=== PATIENT | female | born 1960 | race Caucasian/White ===

== ENCOUNTER 2022-03-12 15:18 | Emergency (ER) | payer MEDICARE, MEDICAID ==
[~2022-03-12] VITALS: Ht 172.7 cm; Wt 52.4 kg
[2022-03-12 15:24] VITALS: BP 139/90
== END 2022-03-12 18:10 | disposition home or self-care (01) ==
LOC: EEVIPCON 15:18 → ER 15:18
DX: Z13.89 Encounter for screening for other disorder (principal); F31.9 Bipolar disorder, unspecified; F20.9 Schizophrenia, unspecified; R11.2 Nausea with vomiting, unspecified
CPT/HCPCS: 99284

== ENCOUNTER 2024-09-07 14:19 | Inpatient (IN) | payer MEDICARE, MEDICAID ==
[~2024-09-07] VITALS: Ht 172.7 cm; Wt 56.8 kg
[2024-09-07 15:16] LABS: BILIRUBIN,URINE NEGATIVE (Neg); CLARITY,URINE CLEAR (Clear); COLOR,URINE YELLOW (Yellow); GLUCOSE, URINE NEGATIVE (Neg); KETONES,URINE NEGATIVE (Neg); LEUKOCYTE ESTERASE ,URINE NEGATIVE (Neg); NITRITES, URINE NEGATIVE (Neg); OCCULT BLOOD,URINE NEGATIVE (Neg); PH,URINE 6.5 (4.8-8.0); PROTEIN,URINE TRACE mg/dl (Neg)
[2024-09-07 15:17] LABS: BASOPHILS # (AUTO) 0.1 X10'3 (0-0.2); BASOPHILS % (AUTO) 0.9 % (0-1); EOSINOPHILS % (AUTO) 0.1 % (0-6); HEMATOCRIT 35.2 % (35.0-45.0); LYMPHOCYTES # (AUTO) 1.7 X10'3 (1.1-4.8); LYMPHOCYTES % (AUTO) 16.4 % (21-51); MEAN CORPUSCULAR HEMOGLOBIN 29.4 PG (27.0-31.0); MEAN CORPUSCULAR VOLUME 86.3 FL (78-98); MEAN PLATELET VOLUME 8.2 FL (7.4-10.4); MONOCYTES # (AUTO) 1.2 X10'3 (0-0.9); MONOCYTES % (AUTO) 11.4 % (2-12); NEUTROPHILS # (AUTO) 7.6 X10'3 (1.8-7.7); NEUTROPHILS % (AUTO) 71.2 % (42-75); PLATELET COUNT 291 X10'3 (140-440); RED BLOOD COUNT 4.07 X10'6 (4.20-5.60); RED CELL DISTRIBUTION WIDTH 14.6 % (11.5-14.5); WHITE BLOOD COUNT 10.6 X10'3 (4.5-11.0)
[2024-09-07 15:18] LABS: UA COLLECTION TYPE NON-SPECIFIED
[2024-09-07 15:22] LABS: BACTERIA,URINE FEW /HPF (Neg); MUCUS STRANDS NONE SEEN /LPF (Neg); RBC,URINE NONE SEEN /HPF (0-2); SQUAMOUS EPITHELIAL CELL,UR FEW /LPF (FEW); TRANSITIONAL EPI CELLS,URINE FEW /HPF; WBC,URINE 0-4 /HPF (0-4)
[2024-09-07 15:32] LABS: ALANINE AMINOTRANSFERASE 68 U/L (12-78); ALBUMIN 2.5 G/DL (3.4-5.0); ALBUMIN/GLOBULIN RATIO 0.6 (1.1-1.5); ALKALINE PHOSPHATASE 299 IU/L (46-116); ANION GAP 10 (8-16); ASPARTATE AMINO TRANSFERASE 427 U/L (10-37); BILIRUBIN,TOTAL 0.6 MG/DL (0.1-1.0); BLOOD UREA NITROGEN 8 MG/DL (7-18); BUN/CREATININE RATIO 11.1 (10.0-20.0); CALCIUM 9.7 MG/DL (8.5-10.1); CHLORIDE 102 MMOL/L (99-107); CREATININE 0.72 MG/DL (0.40-0.90); GLUCOSE 101 MG/DL (70-104); LIPASE 88 U/L (16-77); POTASSIUM 3.7 MMOL/L (3.5-5.1); SODIUM 135 MMOL/L (135-145); TOTAL CARBON DIOXIDE 22.9 MMOL/L (24-32); TOTAL PROTEIN 6.7 G/DL (6.4-8.2); eCRCL 69 ML/MIN; eGFR 81 ML/MIN
[2024-09-07 16:09] LABS: C DIFF ANTIGEN NEGATIVE (NEGATIVE); C DIFF SPECIMEN=DIARRHEA? ACCEPTABLE; C DIFFICILE TOXINS A&B NEGATIVE (Neg)
[2024-09-07] MEDS ORDERED: iohexol 300mg/ml 100ml inj. ONE (16:34)
[2024-09-07] MEDS ORDERED: magnesium sulf-water 4G/100mL 100 ML IV PRN (20:50)
[2024-09-07] MEDS ORDERED: acetaminophen 325mg tablet PO PRN (20:50)
[2024-09-07] MEDS ORDERED: magnesium sulf-water 2g/50mL 50 ML IV PRN (20:50)
[2024-09-07] MEDS ORDERED: potassium Cl 40MEQ/1/2NS 520ml 520 ML IV PRN (20:50)
[2024-09-07] MEDS ORDERED: potassium Cl 20 mEq SR tablet PO PRN ×2 (20:50)
[2024-09-07] MEDS ORDERED: magnesium Cl slow-release 64mg tablet PO PRN (20:50)
[2024-09-07] MEDS ORDERED: ondansetron/PF 4mg/2ml inj IV PRN (20:50)
[2024-09-07 21:21] LABS: ETHANOL < 10 MG/DL (<10)
[2024-09-07] MEDS: levetiracetam 250mg tablet PO ONE (21:45)
[2024-09-07] MEDS ORDERED: albuterol 2.5 MG/3 ML nebule NEB PRN (21:45)
[2024-09-07] MEDS: traZODone 50mg tablet PO ONE (21:45)
[2024-09-07] MEDS: normal saline 1000ml 1,000 ML IV SCH (21:47)
[2024-09-07 22:29] LABS: ACETAMINOPHEN < 2.0 UG/ML (10-30)
[2024-09-07] MEDS: levoFLOXACIN-Levaquin 750MG/D5 150 ML IV SCH (22:50)
[2024-09-07] MEDS: predniSONE 20 mg tablet PO SCH (22:50)
[2024-09-08] MEDS: metroNIDAZOLE-Flagyl 500mg/NS 100 ML IV SCH (00:32)
[2024-09-08] MEDS: ipratropium/albuterol 3ml nebule NEB SCH (02:00)
[2024-09-08] MEDS ORDERED: BENZ1TAB79 PO (03:40)
[2024-09-08 03:55] LABS: BASOPHILS # (AUTO) 0.1 X10'3 (0-0.2); BASOPHILS % (AUTO) 0.6 % (0-1); EOSINOPHILS % (AUTO) 0.1 % (0-6); HEMATOCRIT 32.7 % (35.0-45.0); HEMOGLOBIN 11.3 g/dl (12.0-16.0); LYMPHOCYTES % (AUTO) 10.9 % (21-51); MEAN CORPUSCULAR HEMOGLOBIN 30.2 PG (27.0-31.0); MEAN CORPUSCULAR HGB CONC 34.7 g/dL (33.0-36.5); MEAN CORPUSCULAR VOLUME 87.2 FL (78-98); MEAN PLATELET VOLUME 8.7 FL (7.4-10.4); MONOCYTES # (AUTO) 0.4 X10'3 (0-0.9); MONOCYTES % (AUTO) 4.3 % (2-12); NEUTROPHILS # (AUTO) 7.9 X10'3 (1.8-7.7); NEUTROPHILS % (AUTO) 84.1 % (42-75); PLATELET COUNT 269 X10'3 (140-440); RED BLOOD COUNT 3.75 X10'6 (4.20-5.60); RED CELL DISTRIBUTION WIDTH 14.5 % (11.5-14.5); WHITE BLOOD COUNT 9.4 X10'3 (4.5-11.0)
[2024-09-08 04:04] LABS: APTT 31 SECONDS (22-32); INR 1.4 INR; PROTHROMBIN TIME 14.2 SECONDS (9.0-12.0)
[2024-09-08] MEDS ORDERED: OLAN1CAP17 PO (04:13)
[2024-09-08 04:17] LABS: ALANINE AMINOTRANSFERASE 67 U/L (12-78); ALBUMIN 2.4 G/DL (3.4-5.0); ALBUMIN/GLOBULIN RATIO 0.6 (1.1-1.5); ALKALINE PHOSPHATASE 283 IU/L (46-116); ANION GAP 12 (8-16); ASPARTATE AMINO TRANSFERASE 466 U/L (10-37); BILIRUBIN,TOTAL 0.6 MG/DL (0.1-1.0); BLOOD UREA NITROGEN 7 MG/DL (7-18); BUN/CREATININE RATIO 11.9 (10.0-20.0); CALCIUM 9.3 MG/DL (8.5-10.1); CHLORIDE 103 MMOL/L (99-107); CREATININE 0.59 MG/DL (0.40-0.90); GLUCOSE 101 MG/DL (70-104); MAGNESIUM 1.7 MG/DL (1.5-2.4); PHOSPHORUS 3.1 MG/DL (2.3-4.5); POTASSIUM 3.9 MMOL/L (3.5-5.1); SODIUM 135 MMOL/L (135-145); TOTAL CARBON DIOXIDE 19.6 MMOL/L (24-32); TOTAL PROTEIN 6.3 G/DL (6.4-8.2); eCRCL 84 ML/MIN; eGFR > 90 ML/MIN
[2024-09-08 04:22] LABS: FREE T4 (FREE THYROXINE) 1.48 NG/DL (0.73-1.40)
[2024-09-08 04:29] VITALS: PULSE 91; RESP 18; O2SAT 95
[2024-09-08 04:29] LABS: HEMOGLOBIN A1C 5.8 % (4.5-6.2); THYROID STIMULATING HORMONE 2.43 ulU/ml (0.34-4.50)
[2024-09-08 05:10] LABS: LACTATE DEHYDROGENASE 563 U/L (81-234)
[2024-09-08] MEDS ORDERED: OXYB15TA19 PO (05:48)
[2024-09-08] MEDS ORDERED: OLAN5TAB5 PO (05:55)
[2024-09-08] MEDS ORDERED: OLAN10TA40 PO (05:57)
[2024-09-08] MEDS: K and/or MAG REPLACEMENT MC SCH (08:00)
[2024-09-08 08:11] VITALS: PULSE 94; RESP 18; O2SAT 96
[2024-09-08 09:02] VITALS: BP 109/64; PULSE 83; RESP 14; TEMP 97.9; O2SAT 94
[2024-09-08] MEDS: piperacillin/tazo 3.375gm/50ml 50 ML IV SCH (12:38)
[2024-09-08] MEDS: loperamide 2mg capsule PO PRN (13:04)
[2024-09-08] MEDS: benztropine 1mg tablet PO ONE (13:04)
[2024-09-08] MEDS: vancomycin/NS 1 GM ADD-VANTAGE 250 ML IV SCH (13:04)
[2024-09-08 18:00] VITALS: BP 101/55; PULSE 78; RESP 16; O2SAT 93
[2024-09-08] MEDS: olanzapine 10mg tablet PO SCH (20:50)
[2024-09-08] MEDS: enoxaparin 40mg/0.4ml syringe SQ SCH (20:51)
[2024-09-08] MEDS: FLUoxetine 10mg capsule PO SCH (20:51)
[2024-09-08] MEDS: OLANZapine 5mg rapidly disint. tablet PO SCH (21:00)
[2024-09-08 22:00] VITALS: BP 91/49; PULSE 90; RESP 17; TEMP 98.1; O2SAT 91
[2024-09-09 06:00] VITALS: BP 117/69; PULSE 77; RESP 18; TEMP 97.8; O2SAT 94
[2024-09-09 06:39] LABS: BASOPHILS # (AUTO) 0.1 X10'3 (0-0.2); BASOPHILS % (AUTO) 0.7 % (0-1); EOSINOPHILS % (AUTO) 0.1 % (0-6); HEMATOCRIT 32.6 % (35.0-45.0); HEMOGLOBIN 11.1 g/dl (12.0-16.0); LYMPHOCYTES # (AUTO) 1.3 X10'3 (1.1-4.8); LYMPHOCYTES % (AUTO) 14.6 % (21-51); MEAN CORPUSCULAR HEMOGLOBIN 29.5 PG (27.0-31.0); MEAN CORPUSCULAR HGB CONC 33.9 g/dL (33.0-36.5); MEAN CORPUSCULAR VOLUME 87.1 FL (78-98); MEAN PLATELET VOLUME 8.6 FL (7.4-10.4); MONOCYTES # (AUTO) 0.4 X10'3 (0-0.9); MONOCYTES % (AUTO) 4.2 % (2-12); NEUTROPHILS # (AUTO) 7.1 X10'3 (1.8-7.7); NEUTROPHILS % (AUTO) 80.4 % (42-75); PLATELET COUNT 273 X10'3 (140-440); RED BLOOD COUNT 3.74 X10'6 (4.20-5.60); RED CELL DISTRIBUTION WIDTH 14.2 % (11.5-14.5); WHITE BLOOD COUNT 8.8 X10'3 (4.5-11.0)
[2024-09-09 06:53] LABS: APTT 31 SECONDS (22-32); INR 1.3 INR; PROTHROMBIN TIME 13.3 SECONDS (9.0-12.0)
[2024-09-09 06:55] LABS: ALANINE AMINOTRANSFERASE 53 U/L (12-78); ALBUMIN 2.3 G/DL (3.4-5.0); ALBUMIN/GLOBULIN RATIO 0.6 (1.1-1.5); ALKALINE PHOSPHATASE 262 IU/L (46-116); ANION GAP 14 (8-16); ASPARTATE AMINO TRANSFERASE 333 U/L (10-37); BILIRUBIN,TOTAL 0.4 MG/DL (0.1-1.0); BLOOD UREA NITROGEN 7 MG/DL (7-18); BUN/CREATININE RATIO 11.5 (10.0-20.0); CALCIUM 9.1 MG/DL (8.5-10.1); CHLORIDE 108 MMOL/L (99-107); CREATININE 0.61 MG/DL (0.40-0.90); GLUCOSE 126 MG/DL (70-104); MAGNESIUM 1.6 MG/DL (1.5-2.4); POTASSIUM 3.8 MMOL/L (3.5-5.1); SODIUM 141 MMOL/L (135-145); TOTAL CARBON DIOXIDE 18.7 MMOL/L (24-32); TOTAL PROTEIN 5.9 G/DL (6.4-8.2); eCRCL 81 ML/MIN; eGFR > 90 ML/MIN
[2024-09-09] MEDS: oxybutynin 5mg tablet PO SCH (07:47)
[2024-09-09 08:20] LABS: ALPHA-1-ANTITRYPSIN, SERUM 270 mg/dL (101-187)
[2024-09-09 10:00] VITALS: BP 108/69; PULSE 82; RESP 16; TEMP 97.1; O2SAT 96
[2024-09-09 11:09] LABS: HBSAG SCREEN Negative (Negative); HEP A AB, IGM Negative (Negative); HEP B CORE AB, IGM Negative (Negative); HEPATITIS C VIRUS ANTIBODY Non Reactive (Non Reactive)
[2024-09-09 11:09] LABS: HEP B SURF AB Non Reactive (.)
[2024-09-09 18:00] VITALS: BP 110/61; PULSE 86; RESP 16; TEMP 99.4; O2SAT 95
[2024-09-09 20:00] VITALS: RESP 16; O2SAT 95
[2024-09-09] MEDS: albuterol 60 PUFF/8GM Inhaler (90mcg/1 puff) IH SCH (20:00)
[2024-09-09] MEDS: diatr meglu/diatrizoate 30ml oral sol.-(3 dose) bottle PO SCH (20:13)
[2024-09-09 21:18] VITALS: PULSE 84; RESP 16; O2SAT 93
[2024-09-09 21:51] VITALS: BP 99/51; PULSE 84; RESP 17; TEMP 98.8; O2SAT 95
[2024-09-10] MEDS: VANCOMYCIN LEVEL IV ONE (01:29)
[2024-09-10 06:00] VITALS: BP 113/68; PULSE 83; RESP 17; TEMP 97.7; O2SAT 93
[2024-09-10 06:48] LABS: BASOPHILS % (AUTO) 0.4 % (0-1); EOSINOPHILS % (AUTO) 0.1 % (0-6); HEMATOCRIT 32.5 % (35.0-45.0); LYMPHOCYTES # (AUTO) 2.2 X10'3 (1.1-4.8); LYMPHOCYTES % (AUTO) 20.1 % (21-51); MEAN CORPUSCULAR HEMOGLOBIN 29.5 PG (27.0-31.0); MEAN CORPUSCULAR HGB CONC 33.7 g/dL (33.0-36.5); MEAN CORPUSCULAR VOLUME 87.5 FL (78-98); MEAN PLATELET VOLUME 8.3 FL (7.4-10.4); MONOCYTES % (AUTO) 8.6 % (2-12); NEUTROPHILS # (AUTO) 7.9 X10'3 (1.8-7.7); NEUTROPHILS % (AUTO) 70.8 % (42-75); PLATELET COUNT 280 X10'3 (140-440); RED BLOOD COUNT 3.72 X10'6 (4.20-5.60); RED CELL DISTRIBUTION WIDTH 14.3 % (11.5-14.5); WHITE BLOOD COUNT 11.1 X10'3 (4.5-11.0)
[2024-09-10 07:01] LABS: APTT 27 SECONDS (22-32); INR 1.1 INR; PROTHROMBIN TIME 11.7 SECONDS (9.0-12.0)
[2024-09-10 07:12] LABS: ALANINE AMINOTRANSFERASE 41 U/L (12-78); ALBUMIN 2.1 G/DL (3.4-5.0); ALBUMIN/GLOBULIN RATIO 0.6 (1.1-1.5); ALKALINE PHOSPHATASE 231 IU/L (46-116); ANION GAP 8 (8-16); ASPARTATE AMINO TRANSFERASE 237 U/L (10-37); BLOOD UREA NITROGEN 6 MG/DL (7-18); CALCIUM 8.8 MG/DL (8.5-10.1); CHLORIDE 115 MMOL/L (99-107); CREATININE 0.75 MG/DL (0.40-0.90); GLUCOSE 88 MG/DL (70-104); MAGNESIUM 2.1 MG/DL (1.5-2.4); PHOSPHORUS 2.3 MG/DL (2.3-4.5); POTASSIUM 3.5 MMOL/L (3.5-5.1); SODIUM 143 MMOL/L (135-145); TOTAL CARBON DIOXIDE 19.9 MMOL/L (24-32); TOTAL PROTEIN 5.7 G/DL (6.4-8.2); eCRCL 66 ML/MIN; eGFR 77 ML/MIN
[2024-09-10 07:37] LABS: BILIRUBIN,TOTAL 0.5 MG/DL (0.1-1.0)
[2024-09-10 08:16] LABS: GAMMA GLUTAMLY TRANSPEPTIDASE 404 IU/L (0-60)
[2024-09-10 10:00] VITALS: BP 128/70; PULSE 87; RESP 16; TEMP 97.6; O2SAT 96
[2024-09-10] MEDS ORDERED: iohexol 300mg/ml 100ml inj. ONE (10:21)
[2024-09-10] MEDS: VANCOmycin 1250MG/NS 250ml Bag 250 ML IV SCH (13:59)
[2024-09-10] MEDS ORDERED: TRAZ-256 PO (13:59)
[2024-09-10] MEDS: acetaminophen 325mg tablet PO PRN (14:00)
[2024-09-10 15:08] LABS: D-DIMER 1.99 MG/L FEU (0-0.50)
[2024-09-10 18:00] VITALS: BP 135/76; PULSE 86; RESP 21; TEMP 98.5; O2SAT 96
[2024-09-10] MEDS: PEG 3350/Na sulf,bicarb,Cl/KCl oral sol 4 liter bottle PO ONE (18:50)
[2024-09-10 21:13] VITALS: BP 128/80; PULSE 89; RESP 16; TEMP 97.7; O2SAT 92
[2024-09-10 21:41] VITALS: PULSE 94; RESP 18; O2SAT 95
[2024-09-10 22:00] VITALS: BP 128/80; PULSE 89; RESP 16; TEMP 97.7; O2SAT 92
[2024-09-11 06:00] VITALS: BP 118/67; PULSE 87; RESP 16; TEMP 97.8; O2SAT 92
[2024-09-11 06:23] LABS: BASOPHILS # (AUTO) 0.1 X10'3 (0-0.2); BASOPHILS % (AUTO) 0.5 % (0-1); EOSINOPHILS % (AUTO) 0.1 % (0-6); HEMATOCRIT 32.9 % (35.0-45.0); HEMOGLOBIN 10.9 g/dl (12.0-16.0); LYMPHOCYTES # (AUTO) 2.5 X10'3 (1.1-4.8); LYMPHOCYTES % (AUTO) 19.3 % (21-51); MEAN CORPUSCULAR VOLUME 87.9 FL (78-98); MEAN PLATELET VOLUME 8.8 FL (7.4-10.4); MONOCYTES # (AUTO) 0.9 X10'3 (0-0.9); MONOCYTES % (AUTO) 6.7 % (2-12); NEUTROPHILS # (AUTO) 9.7 X10'3 (1.8-7.7); NEUTROPHILS % (AUTO) 73.4 % (42-75); PLATELET COUNT 291 X10'3 (140-440); RED BLOOD COUNT 3.74 X10'6 (4.20-5.60); RED CELL DISTRIBUTION WIDTH 14.9 % (11.5-14.5); WHITE BLOOD COUNT 13.2 X10'3 (4.5-11.0)
[2024-09-11 07:08] LABS: ALANINE AMINOTRANSFERASE 39 U/L (12-78); ALBUMIN/GLOBULIN RATIO 0.5 (1.1-1.5); ALKALINE PHOSPHATASE 233 IU/L (46-116); ANION GAP 10 (8-16); ASPARTATE AMINO TRANSFERASE 226 U/L (10-37); BILIRUBIN,TOTAL 0.5 MG/DL (0.1-1.0); BLOOD UREA NITROGEN 5 MG/DL (7-18); BUN/CREATININE RATIO 7.2 (10.0-20.0); C-REACTIVE PROTEIN 2.76 MG/DL (0.0-0.5); CALCIUM 8.5 MG/DL (8.5-10.1); CHLORIDE 112 MMOL/L (99-107); CREATININE 0.69 MG/DL (0.40-0.90); GLUCOSE 80 MG/DL (70-104); MAGNESIUM 1.7 MG/DL (1.5-2.4); PHOSPHORUS 2.8 MG/DL (2.3-4.5); POTASSIUM 3.1 MMOL/L (3.5-5.1); SODIUM 141 MMOL/L (135-145); TOTAL CARBON DIOXIDE 18.7 MMOL/L (24-32); TOTAL PROTEIN 5.8 G/DL (6.4-8.2); eCRCL 72 ML/MIN; eGFR 85 ML/MIN
[2024-09-11 08:12] LABS: AFP,SERUM, TUMOR MARKER 3.2 ng/mL (0.0-9.2); CARCINOEMBRYONIC ANTIGEN 1.7 ng/mL (0.0-4.7)
[2024-09-11 10:00] VITALS: BP 123/69; PULSE 87; RESP 16; TEMP 98.3; O2SAT 95
[2024-09-11 11:24] LABS: INR 1.1 INR; PROTHROMBIN TIME 11.4 SECONDS (9.0-12.0)
[2024-09-11] MEDS ORDERED: magnesium sulf-water 2g/50mL 50 ML IV PRN (16:40)
[2024-09-11] MEDS ORDERED: potassium Cl 20 mEq SR tablet PO PRN (16:40)
[2024-09-11] MEDS ORDERED: potassium Cl 40MEQ/1/2NS 520ml 520 ML IV PRN (16:40)
[2024-09-11] MEDS ORDERED: magnesium Cl slow-release 64mg tablet PO PRN (16:40)
[2024-09-11] MEDS ORDERED: magnesium sulf-water 4G/100mL 100 ML IV PRN (16:40)
[2024-09-11] MEDS: lactose-reduced food (Ensure High Protein) 237ml bottle PO SCH (18:05)
[2024-09-11 20:00] VITALS: BP 102/55; PULSE 85; RESP 16; RESP 18; TEMP 97.5; O2SAT 90; O2SAT 94
[2024-09-11] MEDS: potassium Cl 20 mEq SR tablet PO PRN (20:39)
[2024-09-11 20:40] VITALS: PULSE 98; RESP 18; O2SAT 91
[2024-09-11 22:00] VITALS: BP 124/68; PULSE 81; RESP 18; TEMP 97.4; O2SAT 94
[2024-09-12] VITALS (9 sets, daily range): BP systolic 102–128; BP diastolic 55–79; PULSE 80–96; RESP 16–20; TEMP 97.3–97.7; O2SAT 90–97
[2024-09-12] MEDS: VANCOMYCIN LEVEL IV ONE ×2 (00:51→13:29)
[2024-09-12 06:00] LABS: BASOPHILS # (AUTO) 0.1 X10'3 (0-0.2); BASOPHILS % (AUTO) 0.4 % (0-1); EOSINOPHILS % (AUTO) 0.3 % (0-6); HEMATOCRIT 32.3 % (35.0-45.0); HEMOGLOBIN 10.6 g/dl (12.0-16.0); LYMPHOCYTES # (AUTO) 2.5 X10'3 (1.1-4.8); LYMPHOCYTES % (AUTO) 19.6 % (21-51); MEAN CORPUSCULAR HEMOGLOBIN 28.8 PG (27.0-31.0); MEAN CORPUSCULAR HGB CONC 32.9 g/dL (33.0-36.5); MEAN CORPUSCULAR VOLUME 87.5 FL (78-98); MEAN PLATELET VOLUME 8.4 FL (7.4-10.4); MONOCYTES # (AUTO) 0.9 X10'3 (0-0.9); MONOCYTES % (AUTO) 6.9 % (2-12); NEUTROPHILS # (AUTO) 9.1 X10'3 (1.8-7.7); NEUTROPHILS % (AUTO) 72.8 % (42-75); PLATELET COUNT 307 X10'3 (140-440); RED BLOOD COUNT 3.69 X10'6 (4.20-5.60); RED CELL DISTRIBUTION WIDTH 14.5 % (11.5-14.5); WHITE BLOOD COUNT 12.6 X10'3 (4.5-11.0)
[2024-09-12 06:22] LABS: ALANINE AMINOTRANSFERASE 35 U/L (12-78); ALBUMIN 2.1 G/DL (3.4-5.0); ALBUMIN/GLOBULIN RATIO 0.6 (1.1-1.5); ALKALINE PHOSPHATASE 235 IU/L (46-116); ANION GAP 10 (8-16); ASPARTATE AMINO TRANSFERASE 228 U/L (10-37); BILIRUBIN,TOTAL 0.4 MG/DL (0.1-1.0); BLOOD UREA NITROGEN 5 MG/DL (7-18); BUN/CREATININE RATIO 6.4 (10.0-20.0); C-REACTIVE PROTEIN 2.78 MG/DL (0.0-0.5); CALCIUM 8.8 MG/DL (8.5-10.1); CHLORIDE 113 MMOL/L (99-107); CREATININE 0.78 MG/DL (0.40-0.90); GLUCOSE 87 MG/DL (70-104); MAGNESIUM 1.5 MG/DL (1.5-2.4); PHOSPHORUS 2.5 MG/DL (2.3-4.5); POTASSIUM 3.2 MMOL/L (3.5-5.1); SODIUM 142 MMOL/L (135-145); TOTAL CARBON DIOXIDE 19.5 MMOL/L (24-32); TOTAL PROTEIN 5.9 G/DL (6.4-8.2); eCRCL 64 ML/MIN; eGFR 74 ML/MIN
[2024-09-12 07:14] LABS: D-DIMER 3.01 MG/L FEU (0-0.50); INR 1.1 INR; PROTHROMBIN TIME 11.5 SECONDS (9.0-12.0)
[2024-09-12] MEDS: vancomycin/NS 1 GM ADD-VANTAGE 250 ML IV SCH (20:33)
[2024-09-13] VITALS (11 sets, daily range): BP systolic 119–134; BP diastolic 67–78; PULSE 77–90; RESP 14–19; TEMP 97.4–97.7; O2SAT 91–97
[2024-09-13 06:16] LABS: D-DIMER 3.38 MG/L FEU (0-0.50)
[2024-09-13 06:27] LABS: C-REACTIVE PROTEIN 2.08 MG/DL (0.0-0.5); MAGNESIUM 1.9 MG/DL (1.5-2.4)
[2024-09-13 08:19] LABS: BASOPHILS # (AUTO) 0.1 X10'3 (0-0.2); BASOPHILS % (AUTO) 0.5 % (0-1); EOSINOPHILS % (AUTO) 0.2 % (0-6); HEMATOCRIT 31.6 % (35.0-45.0); HEMOGLOBIN 10.6 g/dl (12.0-16.0); LYMPHOCYTES % (AUTO) 16.3 % (21-51); MEAN CORPUSCULAR HEMOGLOBIN 29.2 PG (27.0-31.0); MEAN CORPUSCULAR HGB CONC 33.4 g/dL (33.0-36.5); MEAN CORPUSCULAR VOLUME 87.5 FL (78-98); MEAN PLATELET VOLUME 8.8 FL (7.4-10.4); MONOCYTES % (AUTO) 8.2 % (2-12); NEUTROPHILS # (AUTO) 9.3 X10'3 (1.8-7.7); NEUTROPHILS % (AUTO) 74.8 % (42-75); PLATELET COUNT 341 X10'3 (140-440); RED BLOOD COUNT 3.61 X10'6 (4.20-5.60); RED CELL DISTRIBUTION WIDTH 14.7 % (11.5-14.5); WHITE BLOOD COUNT 12.4 X10'3 (4.5-11.0)
[2024-09-13 08:26] LABS: ALANINE AMINOTRANSFERASE 35 U/L (12-78); ALBUMIN 2.2 G/DL (3.4-5.0); ALBUMIN/GLOBULIN RATIO 0.6 (1.1-1.5); ALKALINE PHOSPHATASE 243 IU/L (46-116); ANION GAP 11 (8-16); ASPARTATE AMINO TRANSFERASE 241 U/L (10-37); BILIRUBIN,TOTAL 0.6 MG/DL (0.1-1.0); BLOOD UREA NITROGEN 6 MG/DL (7-18); CALCIUM 9.5 MG/DL (8.5-10.1); CHLORIDE 113 MMOL/L (99-107); CREATININE 0.86 MG/DL (0.40-0.90); GLUCOSE 84 MG/DL (70-104); POTASSIUM 3.2 MMOL/L (3.5-5.1); SODIUM 143 MMOL/L (135-145); TOTAL CARBON DIOXIDE 18.9 MMOL/L (24-32); eCRCL 58 ML/MIN; eGFR 66 ML/MIN
[2024-09-13] MEDS: lactose-reduced food (Ensure High Protein) 237ml bottle PO SCH (17:30)
[2024-09-14] VITALS (11 sets, daily range): BP systolic 119–133; BP diastolic 65–72; PULSE 82–90; RESP 14–18; TEMP 97.7–98.2; O2SAT 91–96
[2024-09-14] MEDS: VANCOMYCIN LEVEL IV ONE (07:30)
[2024-09-14 08:33] LABS: BASOPHILS # (AUTO) 0.1 X10'3 (0-0.2); BASOPHILS % (AUTO) 0.6 % (0-1); EOSINOPHILS % (AUTO) 0.3 % (0-6); HEMATOCRIT 33.7 % (35.0-45.0); HEMOGLOBIN 11.2 g/dl (12.0-16.0); LYMPHOCYTES # (AUTO) 2.6 X10'3 (1.1-4.8); LYMPHOCYTES % (AUTO) 19.7 % (21-51); MEAN CORPUSCULAR HEMOGLOBIN 28.8 PG (27.0-31.0); MEAN CORPUSCULAR HGB CONC 33.2 g/dL (33.0-36.5); MEAN CORPUSCULAR VOLUME 86.7 FL (78-98); MEAN PLATELET VOLUME 8.6 FL (7.4-10.4); MONOCYTES % (AUTO) 7.9 % (2-12); NEUTROPHILS # (AUTO) 9.5 X10'3 (1.8-7.7); NEUTROPHILS % (AUTO) 71.5 % (42-75); PLATELET COUNT 367 X10'3 (140-440); RED BLOOD COUNT 3.88 X10'6 (4.20-5.60); RED CELL DISTRIBUTION WIDTH 14.9 % (11.5-14.5); WHITE BLOOD COUNT 13.2 X10'3 (4.5-11.0)
[2024-09-14 08:42] LABS: D-DIMER 2.43 MG/L FEU (0-0.50)
[2024-09-14 09:00] LABS: ALANINE AMINOTRANSFERASE 34 U/L (12-78); ALBUMIN 2.4 G/DL (3.4-5.0); ALBUMIN/GLOBULIN RATIO 0.6 (1.1-1.5); ALKALINE PHOSPHATASE 269 IU/L (46-116); ANION GAP 10 (8-16); ASPARTATE AMINO TRANSFERASE 239 U/L (10-37); BILIRUBIN,TOTAL 0.5 MG/DL (0.1-1.0); BLOOD UREA NITROGEN 5 MG/DL (7-18); BUN/CREATININE RATIO 6.3 (10.0-20.0); CALCIUM 9.2 MG/DL (8.5-10.1); CHLORIDE 111 MMOL/L (99-107); CREATININE 0.79 MG/DL (0.40-0.90); GLUCOSE 89 MG/DL (70-104); POTASSIUM 3.3 MMOL/L (3.5-5.1); SODIUM 142 MMOL/L (135-145); TOTAL CARBON DIOXIDE 21.5 MMOL/L (24-32); TOTAL PROTEIN 6.5 G/DL (6.4-8.2); eCRCL 63 ML/MIN; eGFR 73 ML/MIN
[2024-09-14 09:10] LABS: C-REACTIVE PROTEIN 1.91 MG/DL (0.0-0.5); MAGNESIUM 2.1 MG/DL (1.5-2.4); POTASSIUM 3.3 MMOL/L (3.5-5.1)
[2024-09-14 09:26] LABS: PLATELET ESTIMATE NORMAL; TOTAL CELLS COUNTED 100
[2024-09-15] VITALS (8 sets, daily range): BP systolic 121–133; BP diastolic 60–71; PULSE 80–91; RESP 16–18; TEMP 97.7–99.6; O2SAT 91–97
[2024-09-15 07:46] LABS: BASOPHILS # (AUTO) 0.1 X10'3 (0-0.2); BASOPHILS % (AUTO) 0.5 % (0-1); EOSINOPHILS # (AUTO) 0.1 X10'3 (0-0.9); EOSINOPHILS % (AUTO) 0.7 % (0-6); HEMATOCRIT 32.9 % (35.0-45.0); HEMOGLOBIN 11.1 g/dl (12.0-16.0); LYMPHOCYTES # (AUTO) 2.2 X10'3 (1.1-4.8); LYMPHOCYTES % (AUTO) 18.2 % (21-51); MEAN CORPUSCULAR HEMOGLOBIN 29.3 PG (27.0-31.0); MEAN CORPUSCULAR HGB CONC 33.8 g/dL (33.0-36.5); MEAN CORPUSCULAR VOLUME 86.6 FL (78-98); MEAN PLATELET VOLUME 8.5 FL (7.4-10.4); MONOCYTES # (AUTO) 0.9 X10'3 (0-0.9); MONOCYTES % (AUTO) 7.7 % (2-12); NEUTROPHILS # (AUTO) 8.8 X10'3 (1.8-7.7); NEUTROPHILS % (AUTO) 72.9 % (42-75); PLATELET COUNT 347 X10'3 (140-440); RED BLOOD COUNT 3.79 X10'6 (4.20-5.60); RED CELL DISTRIBUTION WIDTH 14.9 % (11.5-14.5)
[2024-09-15 07:53] LABS: D-DIMER 2.94 MG/L FEU (0-0.50)
[2024-09-15 08:01] LABS: ALANINE AMINOTRANSFERASE 39 U/L (12-78); ALBUMIN 2.4 G/DL (3.4-5.0); ALBUMIN/GLOBULIN RATIO 0.6 (1.1-1.5); ALKALINE PHOSPHATASE 268 IU/L (46-116); ANION GAP 9 (8-16); ASPARTATE AMINO TRANSFERASE 229 U/L (10-37); BILIRUBIN,TOTAL 0.5 MG/DL (0.1-1.0); BLOOD UREA NITROGEN 5 MG/DL (7-18); BUN/CREATININE RATIO 7.5 (10.0-20.0); C-REACTIVE PROTEIN 1.78 MG/DL (0.0-0.5); CALCIUM 9.4 MG/DL (8.5-10.1); CHLORIDE 108 MMOL/L (99-107); CREATININE 0.67 MG/DL (0.40-0.90); GLUCOSE 81 MG/DL (70-104); MAGNESIUM 1.8 MG/DL (1.5-2.4); SODIUM 140 MMOL/L (135-145); TOTAL CARBON DIOXIDE 23.1 MMOL/L (24-32); TOTAL PROTEIN 6.1 G/DL (6.4-8.2); eCRCL 74 ML/MIN; eGFR 88 ML/MIN
[2024-09-15] MEDS ORDERED: magnesium sulf-water 4G/100mL 100 ML IV PRN (09:45)
[2024-09-15] MEDS ORDERED: magnesium sulf-water 2g/50mL 50 ML IV PRN (09:45)
[2024-09-15] MEDS ORDERED: potassium Cl 40MEQ/1/2NS 520ml 520 ML IV PRN (09:45)
[2024-09-15] MEDS ORDERED: magnesium Cl slow-release 64mg tablet PO PRN (09:45)
[2024-09-15] MEDS: potassium Cl 20 mEq SR tablet PO PRN (09:59)
[2024-09-15] MEDS ORDERED: traZODone 50mg tablet PO PRN (13:35)
[2024-09-16] VITALS (7 sets, daily range): BP systolic 107–123; BP diastolic 56–64; PULSE 74–86; RESP 14–16; TEMP 97.7–98; O2SAT 94–98
[2024-09-16 06:53] LABS: MAGNESIUM 2.1 MG/DL (1.5-2.4)
[2024-09-16 09:10] LABS: ALANINE AMINOTRANSFERASE 41 U/L (12-78); ALBUMIN 2.6 G/DL (3.4-5.0); ALBUMIN/GLOBULIN RATIO 0.6 (1.1-1.5); ALKALINE PHOSPHATASE 299 IU/L (46-116); ANION GAP 13 (8-16); ASPARTATE AMINO TRANSFERASE 243 U/L (10-37); BILIRUBIN,TOTAL 0.6 MG/DL (0.1-1.0); BLOOD UREA NITROGEN 4 MG/DL (7-18); BUN/CREATININE RATIO 6.1 (10.0-20.0); CALCIUM 10.1 MG/DL (8.5-10.1); CHLORIDE 107 MMOL/L (99-107); CREATININE 0.66 MG/DL (0.40-0.90); GLUCOSE 79 MG/DL (70-104); POTASSIUM 3.7 MMOL/L (3.5-5.1); SODIUM 140 MMOL/L (135-145); TOTAL CARBON DIOXIDE 19.8 MMOL/L (24-32); TOTAL PROTEIN 6.8 G/DL (6.4-8.2); eCRCL 75 ML/MIN; eGFR 90 ML/MIN
[2024-09-17 06:00] VITALS: BP 113/64; PULSE 70; RESP 16; TEMP 97.6; O2SAT 96
[2024-09-17 07:13] LABS: BASOPHILS # (AUTO) 0.1 X10'3 (0-0.2); BASOPHILS % (AUTO) 0.6 % (0-1); EOSINOPHILS # (AUTO) 0.1 X10'3 (0-0.9); EOSINOPHILS % (AUTO) 0.5 % (0-6); HEMATOCRIT 34.4 % (35.0-45.0); HEMOGLOBIN 11.4 g/dl (12.0-16.0); LYMPHOCYTES # (AUTO) 2.5 X10'3 (1.1-4.8); LYMPHOCYTES % (AUTO) 19.3 % (21-51); MEAN CORPUSCULAR HGB CONC 33.2 g/dL (33.0-36.5); MEAN CORPUSCULAR VOLUME 87.2 FL (78-98); MEAN PLATELET VOLUME 8.2 FL (7.4-10.4); MONOCYTES % (AUTO) 8.1 % (2-12); NEUTROPHILS # (AUTO) 9.2 X10'3 (1.8-7.7); NEUTROPHILS % (AUTO) 71.5 % (42-75); PLATELET COUNT 356 X10'3 (140-440); RED BLOOD COUNT 3.94 X10'6 (4.20-5.60); RED CELL DISTRIBUTION WIDTH 15.3 % (11.5-14.5); WHITE BLOOD COUNT 12.8 X10'3 (4.5-11.0)
[2024-09-17 07:47] LABS: ALANINE AMINOTRANSFERASE 42 U/L (12-78); ALBUMIN 2.5 G/DL (3.4-5.0); ALBUMIN/GLOBULIN RATIO 0.6 (1.1-1.5); ALKALINE PHOSPHATASE 287 IU/L (46-116); ANION GAP 13 (8-16); ASPARTATE AMINO TRANSFERASE 243 U/L (10-37); BILIRUBIN,TOTAL 0.6 MG/DL (0.1-1.0); BLOOD UREA NITROGEN 5 MG/DL (7-18); BUN/CREATININE RATIO 7.6 (10.0-20.0); CALCIUM 9.8 MG/DL (8.5-10.1); CHLORIDE 106 MMOL/L (99-107); CREATININE 0.66 MG/DL (0.40-0.90); GLUCOSE 72 MG/DL (70-104); MAGNESIUM 1.9 MG/DL (1.5-2.4); POTASSIUM 3.6 MMOL/L (3.5-5.1); SODIUM 141 MMOL/L (135-145); TOTAL PROTEIN 6.5 G/DL (6.4-8.2); eCRCL 75 ML/MIN; eGFR 90 ML/MIN
[2024-09-17 10:00] VITALS: BP 118/70; PULSE 75; RESP 16; TEMP 97; O2SAT 96
[2024-09-17] MEDS ORDERED: LOPE2CAP PO (12:24)
[2024-09-17] MEDS ORDERED: BUDE10.2 INH (12:24)
[2024-09-17] MEDS ORDERED: ALBU8HFA IH (12:24)
[2024-09-17 16:14] VITALS: PULSE 81; RESP 16; O2SAT 96
[2024-09-17 19:15] VITALS: BP 113/59; PULSE 84; RESP 18; TEMP 97.6; O2SAT 94
[2024-09-17 20:26] VITALS: PULSE 92; RESP 14; O2SAT 95
[2024-09-17 20:30] VITALS: PULSE 91; RESP 16
[2024-09-18] VITALS (8 sets, daily range): BP systolic 107; BP diastolic 59; PULSE 87–96; RESP 14–20; TEMP 98; O2SAT 91–96
[2024-09-18 06:29] LABS: BASOPHILS % (AUTO) 0.3 % (0-1); EOSINOPHILS # (AUTO) 0.1 X10'3 (0-0.9); EOSINOPHILS % (AUTO) 0.4 % (0-6); HEMATOCRIT 34.5 % (35.0-45.0); HEMOGLOBIN 11.4 g/dl (12.0-16.0); LYMPHOCYTES # (AUTO) 2.1 X10'3 (1.1-4.8); LYMPHOCYTES % (AUTO) 15.1 % (21-51); MEAN CORPUSCULAR HEMOGLOBIN 28.4 PG (27.0-31.0); MEAN CORPUSCULAR HGB CONC 32.9 g/dL (33.0-36.5); MEAN CORPUSCULAR VOLUME 86.4 FL (78-98); MEAN PLATELET VOLUME 8.1 FL (7.4-10.4); MONOCYTES # (AUTO) 1.2 X10'3 (0-0.9); MONOCYTES % (AUTO) 8.9 % (2-12); NEUTROPHILS # (AUTO) 10.5 X10'3 (1.8-7.7); NEUTROPHILS % (AUTO) 75.3 % (42-75); PLATELET COUNT 346 X10'3 (140-440); RED CELL DISTRIBUTION WIDTH 15.1 % (11.5-14.5)
[2024-09-18 06:46] LABS: ALANINE AMINOTRANSFERASE 48 U/L (12-78); ALBUMIN 2.7 G/DL (3.4-5.0); ALBUMIN/GLOBULIN RATIO 0.7 (1.1-1.5); ALKALINE PHOSPHATASE 295 IU/L (46-116); ANION GAP 12 (8-16); ASPARTATE AMINO TRANSFERASE 219 U/L (10-37); BILIRUBIN,TOTAL 0.7 MG/DL (0.1-1.0); BLOOD UREA NITROGEN 4 MG/DL (7-18); BUN/CREATININE RATIO 5.7 (10.0-20.0); CALCIUM 10.2 MG/DL (8.5-10.1); CHLORIDE 106 MMOL/L (99-107); GLUCOSE 85 MG/DL (70-104); POTASSIUM 3.2 MMOL/L (3.5-5.1); SODIUM 140 MMOL/L (135-145); TOTAL CARBON DIOXIDE 21.9 MMOL/L (24-32); TOTAL PROTEIN 6.7 G/DL (6.4-8.2); eCRCL 71 ML/MIN; eGFR 84 ML/MIN
[2024-09-18] MEDS: potassium Cl 20 mEq SR tablet PO PRN (08:46)
== END 2024-09-18 14:30 | DRG 871 ==
LOC: ER 14:20 → ED HOLD 20:50 → EDBEDREQ 09-08 02:12 → ORTHO 4S 09-08 08:25
PROVIDERS: ADMIT Internal Medicine Pulmonary Disease; ATTEND Family Medicine
PROC: BW211ZZ Computerized Tomography (CT Scan) of Abdomen and Pelvis using Low Osmolar Contrast (ICD-10-PCS; 2024-09-07)
PROC: BW211ZZ Computerized Tomography (CT Scan) of Abdomen and Pelvis using Low Osmolar Contrast (ICD-10-PCS; principal; 2024-09-10)
DX: A41.9 Sepsis, unspecified organism (principal); J12.82 Pneumonia due to coronavirus disease 2019; U07.1 COVID-19; C19 Malignant neoplasm of rectosigmoid junction; J44.1 Chronic obstructive pulmonary disease with (acute) exacerbation; C78.7 Secondary malignant neoplasm of liver and intrahepatic bile duct; J44.0 Chronic obstructive pulmonary disease with (acute) lower respiratory infection; J84.89 Other specified interstitial pulmonary diseases; K52.9 Noninfective gastroenteritis and colitis, unspecified; F25.9 Schizoaffective disorder, unspecified
CPT/HCPCS: 36415; 71045; 71250; 74177; 74178; 76700; 80053; 80074; 80202; 80320; 80329; 81001; 82103; 82378; 82977; 83036; 83605; 83615; 83690; 83735; 84100; 84132; 84145; 84439; 84443; 85007; 85025; 85379; 85610; 85651; 85730; 86140; 86301; 86304; 86706; 87040; 87081; 87324; 87449; 87502; 87503; 87811; 92508; 92616; 93005; 94640; 94760; 99285; A6258; G0378; J1650; J1956; J2543; J3370; J3490; J7030; J7512; Q9963; Q9967

== ENCOUNTER 2024-09-26 16:32 | Observation (INO) | payer MEDICARE, MEDICAID ==
[~2024-09-26] VITALS: Ht 172.7 cm; Wt 54.4 kg
[~2024-09-26 16:32] MED LIST: ALBU8HFA IH; BENZ1TAB79 PO; BUDE10.2 INH; LOPE2CAP PO; OLAN10TA40 PO; OLAN1CAP17 PO; OLAN5TAB5 PO; OXYB15TA19 PO; TRAZ-256 PO
[2024-09-26 19:07] LABS: BASOPHILS % (AUTO) 0.4 % (0-1); EOSINOPHILS % (AUTO) 0.4 % (0-6); HEMATOCRIT 32.9 % (35.0-45.0); HEMOGLOBIN 11.2 g/dl (12.0-16.0); LYMPHOCYTES # (AUTO) 1.5 X10'3 (1.1-4.8); LYMPHOCYTES % (AUTO) 14.3 % (21-51); MEAN CORPUSCULAR HEMOGLOBIN 29.5 PG (27.0-31.0); MEAN CORPUSCULAR HGB CONC 33.9 g/dL (33.0-36.5); MEAN PLATELET VOLUME 8.5 FL (7.4-10.4); MONOCYTES # (AUTO) 0.9 X10'3 (0-0.9); MONOCYTES % (AUTO) 8.8 % (2-12); NEUTROPHILS # (AUTO) 8.1 X10'3 (1.8-7.7); NEUTROPHILS % (AUTO) 76.1 % (42-75); PLATELET COUNT 277 X10'3 (140-440); RED BLOOD COUNT 3.78 X10'6 (4.20-5.60); RED CELL DISTRIBUTION WIDTH 15.6 % (11.5-14.5); WHITE BLOOD COUNT 10.6 X10'3 (4.5-11.0)
[2024-09-26 19:23] LABS: ALANINE AMINOTRANSFERASE 56 U/L (12-78); ALBUMIN 2.6 G/DL (3.4-5.0); ALBUMIN/GLOBULIN RATIO 0.6 (1.1-1.5); ALKALINE PHOSPHATASE 313 IU/L (46-116); ANION GAP 13 (8-16); ASPARTATE AMINO TRANSFERASE 318 U/L (10-37); BILIRUBIN,TOTAL 0.8 MG/DL (0.1-1.0); BLOOD UREA NITROGEN 9 MG/DL (7-18); BUN/CREATININE RATIO 10.8 (10.0-20.0); CALCIUM 11.2 MG/DL (8.5-10.1); CHLORIDE 103 MMOL/L (99-107); CREATININE 0.83 MG/DL (0.40-0.90); GLUCOSE 96 MG/DL (70-104); SODIUM 139 MMOL/L (135-145); TOTAL PROTEIN 6.9 G/DL (6.4-8.2); eCRCL 46 ML/MIN; eGFR 69 ML/MIN
[2024-09-26 19:37] LABS: POTASSIUM 2.9 MMOL/L (3.5-5.1)
[2024-09-26] MEDS ORDERED: potassium Cl 40MEQ/1/2NS 520ml 520 ML IV PRN (20:30)
[2024-09-26] MEDS ORDERED: acetaminophen 325mg tablet PO PRN (20:30)
[2024-09-26] MEDS ORDERED: ondansetron/PF 4mg/2ml inj IV PRN (20:30)
[2024-09-26] MEDS ORDERED: HYDROmorphone/PF 0.2 MG/ML SYRINGE IV PRN (20:30)
[2024-09-26] MEDS ORDERED: morphine 2 MG/ML inj. syringe IV PRN (20:30)
[2024-09-26] MEDS ORDERED: magnesium sulf-water 2g/50mL 50 ML IV PRN (20:30)
[2024-09-26] MEDS ORDERED: potassium Cl 20 mEq SR tablet PO PRN (20:30)
[2024-09-26] MEDS ORDERED: magnesium Cl slow-release 64mg tablet PO PRN (20:30)
[2024-09-26] MEDS ORDERED: magnesium sulf-water 4G/100mL 100 ML IV PRN (20:30)
[2024-09-26] MEDS ORDERED: magnesium hydroxide 30ml (MOM) UD suspension PO PRN (20:30)
[2024-09-26] MEDS ORDERED: mag hydrox/Alum hydrox/simeth 30ml oral suspension PO PRN (20:30)
[2024-09-26] MEDS: normal saline 1000ml 1,000 ML IV SCH (21:02)
[2024-09-26] MEDS: potassium Cl 20 mEq SR tablet PO PRN (21:02)
[2024-09-26 22:37] LABS: BILIRUBIN,URINE NEGATIVE (Neg); CLARITY,URINE CLOUDY (Clear); COLOR,URINE YELLOW (Yellow); GLUCOSE, URINE NEGATIVE (Neg); KETONES,URINE TRACE mg/dl (Neg); LEUKOCYTE ESTERASE ,URINE MODERATE (Neg); NITRITES, URINE NEGATIVE (Neg); OCCULT BLOOD,URINE NEGATIVE (Neg); PH,URINE 6.5 (4.8-8.0); PROTEIN,URINE 100 mg/dl (Neg); UROBILINOGEN,URINE 0.2 E.U/dL (0.2-1.0)
[2024-09-26] MEDS ORDERED: albuterol 2.5 MG/3 ML nebule NEB PRN (22:55)
[2024-09-26 23:11] LABS: UA COLLECTION TYPE CLN CATCH MIDSTREAM
[2024-09-26 23:12] LABS: BACTERIA,URINE 2+ /HPF (Neg); RBC,URINE NONE SEEN /HPF (0-2); SQUAMOUS EPITHELIAL CELL,UR FEW /LPF (FEW)
[2024-09-26 23:13] LABS: CAL OXALATE CRYSTALS 1+ /HPF (NEGATIVE); HYALINE CASTS 0-3 /LPF (NEGATIVE)
[2024-09-26 23:35] VITALS: BP 109/58; PULSE 79; RESP 16; TEMP 97.3; O2SAT 93
[2024-09-26 23:45] VITALS: RESP 16; O2SAT 93
[2024-09-27] VITALS (9 sets, daily range): BP systolic 95–116; BP diastolic 48–58; PULSE 72–94; RESP 16–18; TEMP 97.7–98.6; O2SAT 92–95
[2024-09-27] MEDS: ipratropium/albuterol 3ml nebule NEB SCH (00:31)
[2024-09-27] MEDS ORDERED: CefTRIAXone/D5W-Rocephin 1gm 50 ML IV SCH (03:35)
[2024-09-27] MEDS: CefTRIAXone/D5W-Rocephin 1gm 50 ML IV SCH (06:01)
[2024-09-27 06:19] LABS: BASOPHILS # (AUTO) 0.1 X10'3 (0-0.2); BASOPHILS % (AUTO) 0.7 % (0-1); EOSINOPHILS % (AUTO) 0.5 % (0-6); HEMATOCRIT 31.5 % (35.0-45.0); HEMOGLOBIN 10.4 g/dl (12.0-16.0); LYMPHOCYTES # (AUTO) 1.2 X10'3 (1.1-4.8); LYMPHOCYTES % (AUTO) 12.5 % (21-51); MEAN CORPUSCULAR HEMOGLOBIN 28.8 PG (27.0-31.0); MEAN CORPUSCULAR HGB CONC 33.1 g/dL (33.0-36.5); MEAN CORPUSCULAR VOLUME 87.1 FL (78-98); MONOCYTES # (AUTO) 0.8 X10'3 (0-0.9); MONOCYTES % (AUTO) 8.5 % (2-12); NEUTROPHILS # (AUTO) 7.5 X10'3 (1.8-7.7); NEUTROPHILS % (AUTO) 77.8 % (42-75); PLATELET COUNT 271 X10'3 (140-440); RED BLOOD COUNT 3.61 X10'6 (4.20-5.60); RED CELL DISTRIBUTION WIDTH 15.9 % (11.5-14.5); WHITE BLOOD COUNT 9.6 X10'3 (4.5-11.0)
[2024-09-27 06:47] LABS: ALANINE AMINOTRANSFERASE 54 U/L (12-78); ALBUMIN 2.5 G/DL (3.4-5.0); ALBUMIN/GLOBULIN RATIO 0.6 (1.1-1.5); ALKALINE PHOSPHATASE 298 IU/L (46-116); ANION GAP 12 (8-16); ASPARTATE AMINO TRANSFERASE 318 U/L (10-37); BILIRUBIN,TOTAL 0.9 MG/DL (0.1-1.0); BLOOD UREA NITROGEN 7 MG/DL (7-18); CALCIUM 10.5 MG/DL (8.5-10.1); CHLORIDE 107 MMOL/L (99-107); GLUCOSE 85 MG/DL (70-104); MAGNESIUM 1.8 MG/DL (1.5-2.4); SODIUM 139 MMOL/L (135-145); TOTAL CARBON DIOXIDE 20.5 MMOL/L (24-32); TOTAL PROTEIN 6.4 G/DL (6.4-8.2); eCRCL 55 ML/MIN; eGFR 84 ML/MIN
[2024-09-27] MEDS: docusate sod 100mg capsule PO SCH (08:00)
[2024-09-27] MEDS: K and/or MAG REPLACEMENT MC SCH (08:00)
[2024-09-27] MEDS: pantoprazole 40 MG vial IV SCH (08:04)
[2024-09-27] MEDS: lactose-reduced food (Ensure Enlive) - 237ml bottle PO SCH (08:05)
[2024-09-27 10:57] LABS: URINE AMPHETAMINE SCREEN NEGATIVE (Neg); URINE BARBITUATE SCREEN NEGATIVE (Neg); URINE BENZODIAZEPINES SCREEN NEGATIVE (Neg); URINE CANNABINOID SCREEN NEGATIVE (Neg); URINE COCAINE SCREEN NEGATIVE (Neg); URINE METHADONE SCREEN NEGATIVE (Neg); URINE OPIATE SCREEN NEGATIVE (Neg); URINE PHENCYCLIDINE SCREEN NEGATIVE (Neg)
[2024-09-27] MEDS ORDERED: CEPH250T PO (11:53)
== END 2024-09-27 16:21 | disposition home or self-care (01) ==
LOC: ER 16:33 → ED HOLD 20:13 → INTOOBSV 20:13 → ORTHO 4S 23:30
PROVIDERS: ADMIT Internal Medicine Pulmonary Disease; ATTEND Family Medicine
DX: R62.7 Adult failure to thrive (principal); E46 Unspecified protein-calorie malnutrition; E03.9 Hypothyroidism, unspecified; E88.09 Other disorders of plasma-protein metabolism, not elsewhere classified; K52.9 Noninfective gastroenteritis and colitis, unspecified; F25.9 Schizoaffective disorder, unspecified; C78.7 Secondary malignant neoplasm of liver and intrahepatic bile duct; E87.6 Hypokalemia; N39.0 Urinary tract infection, site not specified; J44.9 Chronic obstructive pulmonary disease, unspecified; R16.0 Hepatomegaly, not elsewhere classified; Z86.2 Personal history of diseases of the blood and blood-forming organs and certain disorders involving the immune mechanism; Z88.5 Allergy status to narcotic agent; Z79.899 Other long term (current) drug therapy; Z68.1 Body mass index [BMI] 19.9 or less, adult
CPT/HCPCS: 80053; 80305; 81001; 83605; 83735; 87040; 87077; 87186; 93005; 94640; 94760; 96361; 96365; 96375; 99285; G0378; J2470; 36415; 71045; 85025; 87081; 87088; 92508; 92616; J0696; J7030